=== PATIENT | female | born 1960 | race Caucasian/White ===

== ENCOUNTER → 2024-10-21 10:00 | Outpatient (REF) | payer MEDICARE, OTHER, SELFPAY | LOC: CLAB 10:00 | PROVIDERS: ATTENDING PHYSICIAN Surgery | DX: A63.0 Anogenital (venereal) warts (principal) | CPT/HCPCS: 88304 ==

== ENCOUNTER 2025-01-20 06:22 | Day surgery (SDC) | payer MEDICARE, OTHER, SELFPAY | END 2025-01-20 11:07 | disposition home or self-care (01) | LOC: GI 06:22 | PROVIDERS: ATTENDING PHYSICIAN Internal Medicine | DX: K51.90 Ulcerative colitis, unspecified, without complications (principal); Z98.0 Intestinal bypass and anastomosis status; K62.89 Other specified diseases of anus and rectum; K52.89 Other specified noninfective gastroenteritis and colitis; K52.9 Noninfective gastroenteritis and colitis, unspecified | CPT/HCPCS: 45331; 88305 ==

== ENCOUNTER 2025-06-04 18:40 | Emergency (ER) | payer MEDICARE, OTHER, SELFPAY ==
[2025-06-04 18:42] VITALS: BP 183/102
[2025-06-04 20:04] VITALS: BMI 45.1
[2025-06-04] MEDS: OMNIPAQUE 50 ML PO (20:09)
[2025-06-04] MEDS: ZOFRAN 4 MG IV (20:10)
[2025-06-04] MEDS: TORADOL 30 MG IV (20:10)
[2025-06-04 20:24] LABS: Hematocrit 39.6 % (37.0-47.0); Hemoglobin 13.3 g/dL (12.0-16.0); Mean Corp Hgb Conc. 33.6 g/dL (33.0-37.0); Mean Corpuscular Volume 85.7 fL (81.0-99.0); Nucleated Red Blood Cells % 0 %; Platelet Count 243 10^3/uL (130-400); Red Cell Dist. Width 13.9 % (11.5-14.5)
[2025-06-04 20:42] LABS: ALT (SGPT) 25 U/L (0-35); AST (SGOT) 21 U/L (14-36); Albumin 4.3 g/dl (3.5-5.0); Alkaline Phosphatase 97 U/L (38-126); Blood Urea Nitrogen 12 mg/dl (7-17); Calcium 10.2 mg/dl (8.4-10.2); Carbon Dioxide 29 mmol/L (22-30); Chloride 104 mmol/L (98-107); Estimated Creatinine Clearance 125 ml/min; Glucose 100 mg/dl (70-99); Lipase 57 U/L (23-300); Potassium 4.6 mmol/L (3.5-5.1); Sodium 138 mmol/L (135-145); Total Protein 6.7 g/dl (6.3-8.2); eGFR > 60.00
--- NOTE | 2025-06-04 23:19 | ED.GENMED ---
History of Present Illness
General
Chief Complaint: Abdominal Pain
Source: patient
Exam Limitations: none
Time Seen by Provider: 06/04/25 19:32
History of Present Illness
History of Present Illness:
See MDM
Past History
Past History
ED Past Medical History: HTN, Hypercholesterolemia, Other and Other
ED Past Surgical History: Bowel resection and
Social History
Tobacco: Non-smoker
Alcohol: None
Drug: None
Personal:
Living: with family
Employment: Disabled
Family History
Family History: Hypertension
Phy Exam
Physical Exam
Physical Exam:
See MDM
Course
Orders/Labs/Results
Orders:
Orders
06/04/25 19:40
CT Abd/pel W Iv And Oral Contr Urgent
Comment: prior bowel surgeries
Reason For Exam: mid abd pain, known hernia
Iohexol [Omnipaque] See Protocol PO NOW STA
Ketorolac [Toradol] 30 mg IV NOW STA
Ondansetron Injectable [Zofran] 4 mg IV NOW STA
06/04/25 20:10
Complete Blood Count/With Diff Urgent
Comprehensive Metabolic Panel Urgent
Lipase Urgent
Abnormal Lab Results
06/04/25
20:10
Absolute Lymphs (auto) 0.4 L 10^3/uL
(1.2-3.4)
Neutrophils % 83.0 H %
(42.2-75.2)
Lymphocytes % 6.4 L %
(20.5-51.1)
Monocytes % 9.7 H %
(1.7-9.3)
Creatinine 0.5 L mg/dL
(0.6-1.0)
Glucose 100 H mg/dl
(70-99)
06/04/25 20:10
06/04/25 20:10
Vital Signs
Initial and Last Documented VS:
Initial Vital Signs
Temp Pulse Resp BP Pulse Ox
98.2 F 71 20 183/102 98
06/04/25 18:42 06/04/25 18:42 06/04/25 18:42 06/04/25 18:42 06/04/25 18:42
Last Documented Vital Signs
Temp Pulse Resp BP Pulse Ox
98.2 F 71 16 183/102 98
06/04/25 18:42 06/04/25 18:42 06/04/25 22:00 06/04/25 18:42 06/04/25 23:22
MDM/Problems Addressed
Differential Diagnosis Includes:
Note:
CHIEF COMPLAINT(S)
Abdominal pain and gas pains.
HISTORY OF PRESENT ILLNESS
The patient is a 64-year-old female with a known history of a small bowel resection and hernia, presenting with abdominal pain and gas pains. She reports attending an event the day before, where she consumed large quantities of food, leading to her
current symptoms. The patient describes passing gas and having normal bowel movements, indicating no current bowel obstruction. She notes, 'I definitely ate way too much yesterday,' attributing her symptoms to excessive eating. However, there is an
increase in discomfort accompanied by the sensation of hernia involvement. She describes the pain as primarily in the area of her hernia, with the feeling of pressure extending upwards. The hernia is located anatomically abdominal, and she expresses
difficulty in reducing it. The pain has been persistent throughout the morning and has prompted her current medical visit.
PAST MEDICAL AND SURGICAL HISTORY
The patient has a history of small bowel resection and hernia repair.
CHRONIC MEDICAL CONDITIONS SIGNIFICANTLY AFFECTING CARE
The patient has a chronic history of hernia.
REVIEW OF SYSTEMS
- Gastrointestinal: Abdominal pain and gas pains, passing gas, regular bowel movements.
PHYSICAL EXAM
General: Alert, no acute distress.
Skin: Warm, dry.
Head: Normocephalic, atraumatic
Neck: Appears supple, trachea midline.
Eyes, Ears, Nose, Mouth, and Throat: Oral mucosa moist.
Cardiovascular: No signs of cyanosis
Respiratory: Respirations are non-labored.
Abdomen: No significant abdominal tenderness. Palpable umbilical hernia which is soft. No evidence of strangulation
Musculoskeletal: No deformities
Neurological: No focal neurological deficit observed.
Psychiatric: Cooperative, appropriate mood and affect.
PROBLEM LIST
Acute Problems:
- Abdominal pain secondary to overeating and potential hernia involvement.
PLAN
- Obtain a CT scan of the abdomen with contrast to rule out any bowel obstruction or complications related to hernia.
- Administer non-narcotic pain medication (Ketorolac) as per patient preference.
- Evaluate for any need for surgical consultation based on CT findings.
- Provide referral for a new surgical consultation to assess hernia management and potential repair considerations.
DIFFERENTIAL DIAGNOSIS
The Differential Diagnosis includes, in no particular order and is not limited to:
- Hernia complication or strangulation
- Bowel obstruction
- Constipation
- Gastritis
- Peptic ulcer disease
- Gastroesophageal reflux disease (GERD)
- Irritable bowel syndrome
- Abdominal bloating due to dietary causes
- Diverticular disease
- Gallbladder disease
CARE-UPDATE
06/04/25 - 23:18
CT findings indicate possible partial or incomplete small bowel obstruction. Patient reports feeling better, is passing gas, and prefers to go home. Patient has been informed of, and understands, the risks of discharge, including potential need for
surgery or bowel perforation. Patient demonstrates capacity to make an informed decision regarding discharge.
Disposition:
SUMMARY OF ENCOUNTER
The patient, a 64-year-old female with a history of small bowel resection and hernia repair, presented with abdominal pain and gas pains following an event where she consumed a large quantity of food. She reported localized tenderness over the
hernia site and difficulty reducing it, with no evidence of acute bowel obstruction as she was passing gas. A CT scan of the abdomen concerned a possible incomplete small bowel obstruction. After discussion, the patient opted for discharge,
understanding the risks and agreeing to return if symptoms worsen.
DISPOSITION
Discharge.
ASSESSMENT
Possible incomplete small bowel obstruction secondary to excessive food intake, with associated hernia involvement.
PLAN
Discharge the patient with instructions to monitor symptoms closely and return if they worsen. Recommend follow-up with a surgeon in an outpatient setting for hernia management and further evaluation of possible obstruction.
INDEPENDENT REVIEW OF LABS AND INTERPRETATION OF TESTS
My independent CT scan interpretation suggests a possible partial or incomplete small bowel obstruction.
PATIENT EDUCATION AND COUNSELING
The patient was educated on the risks of discharge amidst ongoing symptoms, including the potential for surgical need or bowel perforation. She was informed to monitor her symptoms closely and was advised to return promptly if there was any
worsening of her condition.
FOLLOW-UP INSTRUCTIONS
The patient is instructed to follow up with a surgeon in the outpatient setting.
MEDICATION RECONCILIATION
Non-narcotic pain medication prescribed: Ketorolac for pain management.
MEDICAL DECISION MAKING
- Complexity of Data Reviewed: Chronic conditions affecting care include a history of small bowel resection and hernia. Differential diagnosis considered includes hernia complication or strangulation, bowel obstruction, gastritis, peptic ulcer
disease, and GERD.
- Data:
- Category 1: My independent interpretation of the CT scan suggests a possible incomplete small bowel obstruction.
- Risk: Consideration of Admission/Observation: Escalation of care including admission/observation was considered due to the complexity and potential risk of the patients presenting symptoms and underlying conditions. However, given reassurance from
work-up, symptom management, and patients preference, discharge with outpatient follow-up was favored. The patient was stable and agreeable to discharge instructions, with emphasis on close follow-up.
DIAGNOSIS
- Possible Incomplete Small Bowel Obstruction (ICD-10: K56.609).
- Hernia without obstruction or gangrene (ICD-10: K46.9).
*Pulse Oximetry
SaO2: 98
Oxygen Mode of Delivery: Room air
Patient hypoxic: no
*Critical Care Note
Total Time (30-74mins, 75-104mins- exclusive of procedures): Not Applicable
ED Attending Note
-
Portions of this chart may have been created with voice recognition software.� Occasional wrong word or��sound alike� substitutions may have occurred due to the inherent limitations of voice recognition software.
Discharge Plan
Departure
Patient Disposition: Home (Routine Discharge)
Date of Disposition: 06/04/25
Time of Disposition: 23:22
Patient with high blood pressure during this ER visit?: No
Discharge Problem:
Partial small bowel obstruction
Prescriptions:
No Action
aspirin 81 MG tablet,delayed release (DR/EC)
81 mg PO DAILY
omega-3 fatty acids-fish oil 1 EACH capsule
1 ea PO DAILY
cholecalciferol (vitamin D3) 2,000 UNIT tablet
2,000 unit PO BID
fingolimod [Gilenya] 0.5 MG capsule
0.5 mg PO DAILY
simvastatin 40 MG tablet
40 mg PO HS
multivitamin Tablet
1 tab PO DAILY
divalproex 500 mg tablet extended release 24 hr
1,000 mg PO HS
valsartan 320 mg tablet
320 mg PO DAILY
mesalamine 400 mg Capsule (With Del Rel Tablets)
1,200 mg PO BID
Patient Comments:
09/12/2023: Pt swears she is getting 200mg and takes 3 caps BID, but Dr First shows 400mg filled 09/05/23
dicyclomine 10 mg capsule
20 mg PO AC
miconazole nitrate [Miconazorb AF] 2 % Powder
1 applic topical BID 14 Days Qty: 100 0RF
Referrals:
Jami Paz MD [Family Provider, Internal Medicine]
Leandro Melton MD [Active, Surgical]
Activity Restrictions/Additional Instructions:
Please return for any worsening symptoms.
You may return at any time if you have further concerns.
Please follow up with your doctor at the first available appointment, preferably this week.
Please make an appointment to see the general surgeon at the first available appointment.
Thank you for choosing [facility].
Interventions
Interventions:
*Risk Screen - Suicide Last Done: 06/04/25 20:34
*General Assessment Last Done: 06/04/25 18:42
*Neglect/Abuse Screening Last Done: 06/04/25 20:34
*ED- Fall Risk Assessment Last Done: 06/04/25 20:34
DN-Vqwtes-Jhljylayaz Assessment Last Done: 06/04/25 20:34
Discharge Date and Time
Print Language: BELARUSIAN
== END 2025-06-04 23:30 | disposition home or self-care (01) ==
LOC: EMR 18:40
PROVIDERS: EMERGENCY PHYSICIAN Student in an Organized Health Care Education/Training Program; FAMILY PHYSICIAN Student in an Organized Health Care Education/Training Program
DX: K56.600 Partial intestinal obstruction, unspecified as to cause (principal); K42.9 Umbilical hernia without obstruction or gangrene; I10 Essential (primary) hypertension; E78.00 Pure hypercholesterolemia, unspecified; Z90.49 Acquired absence of other specified parts of digestive tract; Z82.49 Family history of ischemic heart disease and other diseases of the circulatory system
CPT/HCPCS: 99284; 96374; 96375; 74177; 80053; 83690; 85025; Q9967